=== PATIENT | female | born 1950 | race Two or more races ===

== ENCOUNTER 2017-01-02 18:16 | Inpatient (IN) | payer MEDICARE, MEDICAID ==
[~2017-01-02] VITALS: Ht 167.6 cm; Wt 80.7 kg
[~2017-01-02 18:16] MED LIST: ALBU18HF2 IH; ARMO250T4 PO; DULO60CA63 PO; LOPE2TAB25 PO; METH4TAB16 PO; OMEP40CA37 PO; OXYC10TA49 PO; TRAZ-144 PO; ZOLP5TAB7 PO
--- NOTE | 2017-01-02 18:22 | NUR ---
PT TO ED ROOM 05 VIA RA 102. BIB RA C/O N/V/D AND SOB SINCE 1200 TODAY. HYPOXIC. SIDE RAISL UP. HOB ELEVATED. CONNECTED TO MONITOR. O2 VIA N/R @ 15 L/M. SEEN ND EVALUATED BY ED PROVIDER.
[2017-01-02] MEDS ORDERED: IV NS 0.9% 1,000 ML IV ONE (18:26)
[2017-01-02] MEDS ORDERED: CEFTRIAXONE 1GM BAG (ER ONLY) 50 ML IV ONE ×2 (18:30→18:44)
[2017-01-02] MEDS ORDERED: IPRATROPIUM NEB FS 0.5 MG/2.5 ML AMPUL.NEB NEB ONE (18:30)
[2017-01-02] MEDS ORDERED: LEVOFLOXACIN 750 MG /D5W 150ML 150 ML IV ONE ×2 (18:30→18:44)
[2017-01-02] MEDS ORDERED: methylPREDNISolone SOD SUCC 125 MG/2ML VIAL IV ONE (18:30)
[2017-01-02] MEDS ORDERED: ALBUTEROL FS 2.5 MG/3 ML VIAL.NEB NEB ONE (18:30)
--- NOTE | 2017-01-02 18:30 | NUR ---
BLOOD CULTURES OBTAINED PRIOR TO STARTING EMPIRIC ATB THERAPY
[2017-01-02] MEDS ORDERED: methylPREDNISolone SOD SUCC 125 MG/2ML VIAL ONE (18:44)
[2017-01-02] MEDS ORDERED: IV NS 0.9% 1,000 ML ONE ×2 (18:44→23:49)
[2017-01-02] MEDS ORDERED: IV SET PRIMARY PUMP SET 1 EA INFUS.SET MC ONE ×3 (18:44→22:04)
[2017-01-02 18:49] LABS: BASOPHILS # (AUTO) 0.1 /CMM (0.0-0.2); BASOPHILS % (AUTO) 0.5 % (0.0-2.0); HEMATOCRIT 46 % (33-45); HEMOGLOBIN 14.5 g/dL (11.5-14.8); MEAN CORPUSCULAR HEMOGLOBIN 28 PG (26.0-33.0); MEAN CORPUSCULAR HGB CONC 32 g/dl (31.0-36.0); MEAN CORPUSCULAR VOLUME 89 fL (82-100); MONOCYTES # (AUTO) 1.3 /CMM (0.1-1.30); MONOCYTES % (AUTO) 6.2 % (2.0-12.0); NEUTROPHILS # (AUTO) 18.5 /CMM (1.8-8.9); NEUTROPHILS % (AUTO) 88.3 % (43.0-81.0); PLATELET COUNT (AUTO) 250 /CMM (150-450); RDW COEFFICIENT OF VARIATION 15.9 (11.5-15.0); RED BLOOD CELL COUNT(AUTO) 5.16 MIL/uL (4.0-5.2)
[2017-01-02 19:00] LABS: CALCIUM, SERUM 8.4 mg/dL (8.5-10.1); CARBON DIOXIDE 32 mmol/L (21-32); CHLORIDE 104 mmol/L (98-107); CREATININE 0.9 mg/dL (0.6-1.3); GFR 63 mL/min (>60); GLUCOSE 181 mg/dL (74-106); POTASSIUM 3.5 mmol/L (3.5-5.1); SODIUM SERUM 142 mmol/L (136-145); UREA NITROGEN, BLOOD 9 mg/dL (7-18)
[2017-01-02] MEDS ORDERED: IPRATROPIUM NEB FS 0.5 MG/2.5 ML AMPUL.NEB ONE (19:06)
[2017-01-02] MEDS ORDERED: ALBUTEROL FS 2.5 MG/3 ML VIAL.NEB ONE (19:06)
[2017-01-02 19:07] LABS: ALANINE AMINOTRANSFERASE 25 U/L (12-78); ALBUMIN 3.4 g/dL (3.4-5.0); ALKALINE PHOSPHATASE 91 U/L (46-116); ASPARTATE AMINOTRANSFERASE 17 U/L (15-37); BILIRUBIN,DIRECT 0.1 mg/dL (0.0-0.2); BILIRUBIN,TOTAL 0.3 mg/dL (0.2-1.0); TOTAL PROTEIN, SERUM 7.1 g/dL (6.4-8.2)
[2017-01-02 19:08] LABS: TROPONIN I < 0.017 ng/mL (0.00-0.056)
--- NOTE | 2017-01-02 19:08 | NUR ---
RT AT BEDSIDE FOR BT.
[2017-01-02 19:09] LABS: LACTIC ACID 1.5 mmol/L (0.4-2.0)
--- NOTE | 2017-01-02 19:46 | NUR ---
RECEIVED PATIENT IN BED ALERT ORIENTED X2-3, DENIES ANY PAIN OR DISCOMFORT. VSS.
[2017-01-02 20:00] VITALS: BP 132/54
--- NOTE | 2017-01-02 20:54 | NUR ---
PT ASSIGNED ROOM 109A [facility]
--- NOTE | 2017-01-02 21:00 | NUR ---
Inserted holcomb cath aseptically, patient jayda procedure well. Drained about 300cc of orange colored clear urine. Sample collected and sent to lab.
[2017-01-02 21:15] LABS: APPEARANCE,URINE CLEAR (CLEAR); BILIRUBIN,URINE NEGATIVE (NEGATIVE); BLOOD, URINE 1+ Ery/uL (NEGATIVE); COLOR,URINE YELLOW (YELLOW); KETONES,URINE NEGATIVE (NEGATIVE); LEUKOCYTE ESTERASE ,URINE NEGATIVE (NEGATIVE); NITRITE, URINE NEGATIVE (NEGATIVE); PROTEIN,URINE TRACE mg/dl (NEGATIVE); UGLUCOSE 1+ mg/dL (NEGATIVE); UROBILINOGEN,URINE 0.2 EU/dL (0.2)
--- NOTE | 2017-01-02 21:20 | NUR ---
Report given to Jeannie GARCIA for admission.
[2017-01-02 21:24] LABS: ADD URINE CULTURE YES; BACTERIA,URINE 3+ /HPF (None Seen); SQUAMOUS EPITHELIAL CELL,UR 0-2 /HPF (None Seen)
[2017-01-02] MEDS ORDERED: ONDANSETRON HCL/PF 4 MG/2 ML VIAL IVP PRN (22:00)
[2017-01-02] MEDS ORDERED: ACETAMINOPHEN 325 MG TABLET PO PRN (22:00)
[2017-01-02] MEDS ORDERED: IV NS 0.9% 1,000 ML BAG IV ONE (22:00)
[2017-01-02] MEDS ORDERED: Z GUARD REMEDY 2 OZ OINT TP PRN (22:00)
[2017-01-02] MEDS ORDERED: MAGNESIUM HYDROXIDE 30 ML UDC PO PRN (22:00)
[2017-01-02] MEDS ORDERED: MAG HYDROX/AL HYDROX/SIMETH 30 ML UDC PO PRN (22:00)
[2017-01-02] MEDS ORDERED: HYDROCODONE/APAP 5/325MG 1 EACH TABLET PO PRN (22:00)
[2017-01-02 22:05] VITALS: BP 125/71
--- NOTE | 2017-01-02 22:09 | NUR ---
Tranported patient to [facility] rm 109 via als protocol. Endorsed to RADHA Ni order for 2L NS bolus. No incident noted.
[2017-01-02] MEDS ORDERED: IV NS 0.9% 1,000 ML IV PRN ×2 (22:30)
[2017-01-02] MEDS ORDERED: IPRATROPIUM NEB FS 0.5 MG/2.5 ML AMPUL.NEB NEB PRN (22:30)
[2017-01-02] MEDS ORDERED: LEVOFLOXACIN 750 MG /D5W 150ML 750 MG in PREMIX 1 EA IV SCH (22:30)
[2017-01-02] MEDS ORDERED: ALBUTEROL FS 2.5 MG/3 ML VIAL.NEB NEB PRN (22:30)
[2017-01-02 22:40] VITALS: BP 125/71
[2017-01-02] MEDS ORDERED: DEXTROSE 50%-WATER 50 ML DISP.SYRIN IV PRN (23:30)
--- NOTE | 2017-01-02 23:58 | NUR ---
RN:TD: PT ADMITTED FROM ED FOR UTI. PT LETHARGIC BUT AROUSABLE TO TOUCH. PT A/OX2-3. PT PLACED ON 4 L NC WITH O2 SAT 94%. PT SR ON THE MONITOR. ALL BELONGINGS TAKEN HOME BY PATIENTS NEIGHBOR, WITH THE EXCEPTION OF THE PATIENTS CELL PHONE AND CHARGE WHICH REMAINS AT THE BEDSIDE. PT SKIN INTACT. IV SITES IN TACT. 2 L NS BOLUS ENDORSED FROM ED. SECOND LITER INFUSING AT THIS TIME. ASPIRATION AND FALL PRECAUTIONS IN PLACE. PT TAKEN TO CT PER ACLS PROTOCOL. CT HEAD AND ABD/PELVIS PER MD ORDER, ORDER CHANGED TO STAT TO ENSURE RADIOLOGY READS IMAGING TONIGHT. LEVAQUIN NON ADMIN BECAUSE PT RECEIVED THIS MEDICATION IN ER. PT RESTING COMFORTABLY IN BED. VSS. WILL CONTINUE TO MONITOR CLOSELY.
[2017-01-03] VITALS (7 sets, daily range): BP systolic 95–146; BP diastolic 49–84
[2017-01-03] MEDS: IV NS 0.9% 1,000 ML IV PRN ×2 (00:56→16:36)
--- NOTE | 2017-01-03 04:38 | NUR ---
RN:TD: PT REMAINS LETHARGIC BUT AROUSABLE TO TOUCH. PT ABLE TO STATE WHICH HOSPITAL SHE IS IN. PATIENT ADMITS TO TAKING PAIN MEDICATION YESTERDAY SHANK BONER. VITAL SIGNS REMAIN STABLE. ASPIRATION AND FALL PRECAUTIONS IN PLACE.
[2017-01-03] MEDS: INSULIN REGULAR, HUMAN 100 UNIT/ML 3 ML VIAL SQ PRN ×4 (06:45→21:32)
[2017-01-03] MEDS: BLOOD SUGAR DIAGNOSTIC 1 EACH STRIP IN SCH ×4 (06:45→21:29)
[2017-01-03 06:55] LABS: HEMATOCRIT 38 % (33-45); HEMOGLOBIN 12.1 g/dL (11.5-14.8); LYMPHOCYTES # (AUTO) 0.7 /CMM (0.8-4.8); LYMPHOCYTES % (AUTO) 4.5 % (20.0-44.0); MEAN CORPUSCULAR HEMOGLOBIN 29 PG (26.0-33.0); MEAN CORPUSCULAR HGB CONC 32 g/dl (31.0-36.0); MEAN CORPUSCULAR VOLUME 89 fL (82-100); MONOCYTES # (AUTO) 0.2 /CMM (0.1-1.30); MONOCYTES % (AUTO) 1.3 % (2.0-12.0); NEUTROPHILS # (AUTO) 14.2 /CMM (1.8-8.9); NEUTROPHILS % (AUTO) 94.2 % (43.0-81.0); PLATELET COUNT (AUTO) 199 /CMM (150-450); RDW COEFFICIENT OF VARIATION 15.7 (11.5-15.0); RED BLOOD CELL COUNT(AUTO) 4.23 MIL/uL (4.0-5.2); WHITE BLOOD COUNT (AUTO) 15.1 K/uL (4.3-11.0)
[2017-01-03 07:26] LABS: THYROID STIMULATING HORMONE 0.13 uIU/mL (0.358-3.74)
[2017-01-03 07:27] LABS: CALCIUM, SERUM 7.7 mg/dL (8.5-10.1); CREATININE 0.7 mg/dL (0.6-1.3); MAGNESIUM 1.4 mg/dL (1.8-2.4); PHOSPHORUS 1.8 mg/dL (2.5-4.9); POTASSIUM 3.9 mmol/L (3.5-5.1)
--- NOTE | 2017-01-03 08:05 | NUR ---
RN NOTES RECEIVED PT RESTING IN BED. ASLEEP AT THIS TIME, ON O2@3LPM VIA NC, NO RESP DISTRESS NOTED, SR ON TELE MONITOR HR 69 THIS TIME. ONGOING IVF NS@75ML/HR INFUSING ON L WRIST. NO PAIN/DISCOMFORT NOTED. KEPT COMFORTABLE. CALL LIGHT WITHIN REACH, WILL CONT TO MONITOR
[2017-01-03] MEDS ORDERED: LOPERAMIDE HCL (2 MG CAP) 2 MG CAPSULE PO PRN (08:30)
[2017-01-03] MEDS ORDERED: oxyCODONE IR immediate release 5 MG CAPSULE PO PRN (08:30)
[2017-01-03] MEDS: DULOXETINE HCL 30 MG CAPSULE.DR PO SCH (08:52)
[2017-01-03] MEDS: PANTOPRAZOLE 40 MG TABLET.DR PO SCH (08:52)
[2017-01-03] MEDS: methylPREDNISolone SOD SUCC 40 MG/ML VIAL IV SCH ×3 (08:52→16:36)
[2017-01-03] MEDS ORDERED: SECONDARY IV SET 1 EA INFUS.SET MC ONE (10:56)
[2017-01-03] MEDS: NICOTINE PATCH (14MG) 14 MG PATCH.TD24 TD SCH (10:58)
[2017-01-03] MEDS: Magnesium 1GM/D5W 100ML PREMIX 100 ML IV SCH ×2 (10:59→12:11)
[2017-01-03] MEDS ORDERED: K PHOS NEUTRAL 250 MG TABLET PO ONE (15:30)
[2017-01-03] MEDS: LEVOFLOXACIN 750 MG /D5W 150ML 750 MG in PREMIX 1 EA IV SCH (17:18)
--- NOTE | 2017-01-03 18:43 | NUR ---
RN NOTES PT INFORMED TO HAVE SISTER BRING HOME MED NUVIGIL, PT AGREED AND SHE SAID SHE WILL LET HER SISTER KNOW
--- NOTE | 2017-01-03 19:35 | NUR ---
RN OPENING NOTES: RECEIVED PT ON BED AWAKE ALX2-3 AND VERBALLY RESPONSIVE. ON O2 VIA NC AT 3LPM TOLERATED WELL NOT IN APPARENT DISTRESS. IV ACCESS ON LEFT HAND G20 PATENT AND INTACT, IVF INFUSING ORDERED. IV ON RAC G20 NOT PATENT, UNABLE TO FLUSH AT THIS TIME. TO DC. FC INTACT, DRAINING TO A CLOSED SYSTEM WITH CLEAR URINE. SAFETY MEASURES ENSURED. CALL LIGHT WITHIN REACH. CONTINUOUSLY MONITORED PT.
[2017-01-04] VITALS: BP 116/65
[2017-01-04 04:00] VITALS: BP 120/77
[2017-01-04] MEDS: BLOOD SUGAR DIAGNOSTIC 1 EACH STRIP IN SCH ×4 (06:43→21:37)
[2017-01-04] MEDS: PANTOPRAZOLE 40 MG TABLET.DR PO SCH ×2 (06:44→07:56)
[2017-01-04] MEDS: INSULIN REGULAR, HUMAN 100 UNIT/ML 3 ML VIAL SQ PRN ×4 (06:48→21:39)
[2017-01-04 06:59] LABS: CALCIUM, SERUM 8.1 mg/dL (8.5-10.1); CREATININE 0.6 mg/dL (0.6-1.3); MAGNESIUM 1.7 mg/dL (1.8-2.4); PHOSPHORUS 2.5 mg/dL (2.5-4.9); POTASSIUM 3.9 mmol/L (3.5-5.1)
--- NOTE | 2017-01-04 07:23 | NUR ---
RN CLOSING NOTES: PT REMAINED IN BED NOT IN APPARENT DISTRESS. REMAINED ON O2 THERAPY TOLERATED WELL. REMAINED SR ON MONITOR. REFUSED BED BATH, PER PATIENT SHE JUST WANTS TO SLEEP. AM LABD SRAWN. ACCUCHECKS PER PROTOCOL. SAFETY MEASURES ENSURED. ENDORSED TO AM SHIFT RN
--- NOTE | 2017-01-04 07:25 | NUR ---
TELE/RN AM NOTES RECEIVED PATIENT IN BED, ASLEEP, NO S/SX DISTRESS, RESPIRATION EVEN, UNLABORED, OXYGEN IN PLACE DELIVERING 3L/M VIA N/C, O2 SATURATION 100%. TELE MONITOR ATTACHED, HR 68, SINUS RHYTHM. IV LINE RAC INTACT, PATENT. WITH NS 75 CC/H. FOLLY CATHETER INTACT WITH 150 CC/URINE OUTPUT, CLEAR, YELLOW URINE, NO SEDIMENTS. BED IN LOW POSITION, 2SR UP FOR SAFETY. RESTING COMFORTABLY, WITH CALL LIGHT WITHIN EASY REACH. WILL CONTINUE TO MONITOR ACCORDINGLY Addendum: 01/04/17 at 1054 by DENA REYES RN CORRECTION: RAC PERIPHERAL LINE CLOGGED, LEFT WRIST PATENT, INTACT
[2017-01-04 08:00] VITALS: BP 145/78
[2017-01-04] MEDS: methylPREDNISolone SOD SUCC 40 MG/ML VIAL IV SCH ×3 (08:39→17:39)
[2017-01-04] MEDS: NICOTINE PATCH (14MG) 14 MG PATCH.TD24 TD SCH (08:39)
[2017-01-04] MEDS: DULOXETINE HCL 30 MG CAPSULE.DR PO SCH (08:40)
[2017-01-04] MEDS ORDERED: SECONDARY IV SET 1 EA INFUS.SET MC ONE (11:40)
[2017-01-04] MEDS: IV NS 0.9% 1,000 ML IV PRN (11:47)
[2017-01-04] MEDS: Magnesium 1GM/D5W 100ML PREMIX 100 ML IV SCH ×2 (11:47→12:56)
[2017-01-04 12:00] VITALS: BP 158/90
[2017-01-04 16:00] VITALS: BP 175/99
--- NOTE | 2017-01-04 16:09 | NUR ---
RN NOTES PER DIETITIAN RECOMMENDATION TO GIVE BOOST (GLUCOSE CONTROL) BID BETWEEN MEALS D/T POOR PO INTAKE, NOTED CARRIED OUT
--- NOTE | 2017-01-04 17:15 | NUR ---
RN NOTES DR. GARG VISITED, EXAMINED PATIENT, ORDERED TO D/C NORCO, START OXY IR 10 MG PO Q4H PRN FOR PAIN, AND GIVE IV NS 0.45 , 75 CC/H, D/C CURRENT IV 0.9 NS. NOTED CARRIED OUT
[2017-01-04] MEDS ORDERED: IV SET PRIMARY PUMP SET 1 EA INFUS.SET MC ONE (17:26)
[2017-01-04] MEDS: LEVOFLOXACIN 750 MG /D5W 150ML 750 MG in PREMIX 1 EA IV SCH (17:38)
[2017-01-04] MEDS: oxyCODONE IR immediate release 5 MG CAPSULE PO PRN (17:39)
--- NOTE | 2017-01-04 18:31 | NUR ---
RN NOTES PATIENT HAS BLOOD PRESSURE 175/99, PULSE 81, ASYMPTOMATIC, DENIES HEADACHE, DR. СЕРГЕЙ MEJIA, WILL WAIT FOR REPLY
--- NOTE | 2017-01-04 18:54 | NUR ---
TELE/RN CLOSING NOTES PATIENT IS IN THE BED, AWAKE, ALERT, NO CHANGES IN MENTAL STATUS NOTED DURING THE SHIFT, STABLE, ON OXYGEN 3L/M VIA N/C, TOLERATING WELL, O2 SAT 93%, NO SOB, HOB ELEVATED FOR COMFORT. TELE MONITOR ATTACHED HR 78 SINUS RHYTHM. IV LINE LFA INTACT, WITH NS 0.45% AT 75 CC/H ORDERED. NO S/SX FLUID OVERLOAD, RESPIRATION UNLABORED EVEN, F/C INTACT, WITH YELLOW URINE WITHOUT SEDIMENT, OUTPUT 1350 CC DURING THE SHIFT. KEPT CLEAN DRY COMFORTABLE , NEEDS MET IN TIMELY MANNER, WITH CALL LIGHT WITHIN EASY REACH ALL THE TIME. WILL ENDORSE TO THE NEXT SHIFT ACCORDINGLY.
[2017-01-04] MEDS: IV 1/2NS 1000 ML 1,000 ML IV PRN (19:12)
--- NOTE | 2017-01-04 19:25 | NUR ---
RN NOTES PT AWAKE, HOB ELEVATED, NO SOB, NOT IN DISTRESS, WITH O2 INHALATION AT 2LPM VIA NC AND TOLERATED WELL WITH GOOD SATURATION . PT ALERT AND ORIENTED X3, DENIES ANY PAIN AND DISCOMFORT AT THIS TIME. TELEMONITOR READS SINUS RHYTHM WITH HEART RATE AT 73. PER REPORT PT HAS ELEVATED BP, AWAITING FOR RETURN CALL FROM THE FINANCE PROFESSOR MD. IV ACCESS ON LEFT FORE ARM PATENT AND INTACT WITH ONGOING IVF INFUSING WELL. RICH CATH INTACT WITH CLEAR YELLOW URINE OUTPUT NOTED. DVT PUMP ON BOTH LOWER LEG AND HEELS OFFLOADED. KEPT COMFORTABLE AND ATTENDED. KEPT BED IN THE LOWEST POSITION, LOCKED, WITH SIDE RAILS X2 UP AND CALL LIGHT WITHIN REACH. WILL CONTINUE TO MONITOR PT.
[2017-01-04 20:00] VITALS: BP 166/93
[2017-01-04] MEDS ORDERED: hydrALAZINE HCL 10 MG TABLET ONE (21:26)
[2017-01-04] MEDS ORDERED: hydrALAZINE HCL 10 MG TABLET PO ONE (21:30)
--- NOTE | 2017-01-04 21:32 | NUR ---
RN NOTES BP RECHECKED 169/100, HEART RATE 78, TEMP 98.3. SPOKE TO SIERRA MICHAELS NP, MADE HIM AWARE PT HAS ELEVATED BP, NEW ORDER RECEIVED, GIVE APRESOLINE 10 MG TAB X1 NOW AND MAY GIVE DESYREL 50 MG TAB AFTER 1 HOUR IF PT WILL ASK FOR IT. PT MADE AWARE, NOTED AND CARRIED OUT.
--- NOTE | 2017-01-04 21:39 | NUR ---
RN NOTES BLOOD SUGAR CHECKED 166 MG/DL, 3 UNITS REGULAR INSULIN GIVEN SUBCU PER SLIDING SCALE. SNACKS OFFERED TO THE PT.
--- NOTE | 2017-01-04 22:35 | NUR ---
RN NOTES BP 157/87, HEART RATE 71. PT DENIES ANY PAIN AND DISCOMFORT. PT IS HAVING DIFFICULTY SLEEPING AND ASKING FOR TRAZADONE. WILL CONTINUE TO MONITOR PT.
[2017-01-04] MEDS: TRAZODONE 50 MG TABLET PO PRN (22:39)
--- NOTE | 2017-01-04 22:39 | NUR ---
RN NOTES DESYREL 50 MG TAB GIVEN PO AND TOLERATED WELL, FOR DIFFICULTY SLEEPING. WILL CONTINUE TO MONITOR PT.
[2017-01-05] VITALS: BP 146/78
[2017-01-05 04:00] VITALS: BP_SYST 146; BP_SYST 159; BP_DIAS 78; BP_DIAS 99
[2017-01-05] MEDS: IV 1/2NS 1000 ML 1,000 ML IV PRN (06:25)
[2017-01-05 06:26] LABS: HEMATOCRIT 39 % (33-45); HEMOGLOBIN 12.5 g/dL (11.5-14.8); LYMPHOCYTES # (AUTO) 1.2 /CMM (0.8-4.8); LYMPHOCYTES % (AUTO) 8.5 % (20.0-44.0); MEAN CORPUSCULAR HEMOGLOBIN 29 PG (26.0-33.0); MEAN CORPUSCULAR HGB CONC 32 g/dl (31.0-36.0); MEAN CORPUSCULAR VOLUME 89 fL (82-100); MONOCYTES # (AUTO) 0.7 /CMM (0.1-1.30); MONOCYTES % (AUTO) 5.3 % (2.0-12.0); NEUTROPHILS % (AUTO) 86.2 % (43.0-81.0); PLATELET COUNT (AUTO) 199 /CMM (150-450); RDW COEFFICIENT OF VARIATION 15.6 (11.5-15.0); RED BLOOD CELL COUNT(AUTO) 4.34 MIL/uL (4.0-5.2); WHITE BLOOD COUNT (AUTO) 13.9 K/uL (4.3-11.0)
[2017-01-05] MEDS: BLOOD SUGAR DIAGNOSTIC 1 EACH STRIP IN SCH ×4 (06:36→23:50)
[2017-01-05] MEDS: INSULIN REGULAR, HUMAN 100 UNIT/ML 3 ML VIAL SQ PRN ×4 (06:38→23:53)
[2017-01-05 06:49] LABS: CREATININE 0.7 mg/dL (0.6-1.3); MAGNESIUM 1.9 mg/dL (1.8-2.4); PHOSPHORUS 2.6 mg/dL (2.5-4.9); POTASSIUM 3.6 mmol/L (3.5-5.1)
--- NOTE | 2017-01-05 07:15 | NUR ---
RN NOTES PT ASLEEP, HOB ELEVATED, NO SOB, NOT IN DISTRESS, ON O2 INHALATION AT 2LPM VA NC WITH GOOD SATURATION. NOTED WITH SOB ON EXERTION, PT ABLE TO AMBULATE GOING TO THE BATHROOM. PT COUGH AT TIMES, NON PRODUCTIVE. TELE MONITOR READS SINUS RHYTHM WITH HEART RATE AT 63. PT AFEBRILE, LATEST BP 153/87, NO COMPLAIN OF PAIN, NO EPISODE OF NAUSEAS AND VOMITING. ALL DUE MEDS GIVEN. KEPT COMFORTABLE AND ATTENDED. WILL ENDORSE TO MORNING RN FOR CONTINUITY OF CARE.
--- NOTE | 2017-01-05 07:30 | NUR ---
RN NOTES RECEIVED PT RESTING IN BED AWAKE ALERT ORIENTED, NOT IN DISTRESS, WITH O2@ 2LPM VIA NC, TOLERATING WELL NO SOB. WITH C/O PAIN ON HER BACK PS 04/08 WILL GIVE PAIN MEDS ORDERED. TELEMONITOR SHOWS SINUS RHYTHM WITH HEART RATE AT 75. IV ACCESS ON LEFT FOREARM PATENT AND INTACT WITH ONGOING IVF 1/2NS@75ML/HR INFUSING WELL. RICH CATH PATENT, INTACT DRAINING YELLOW COLOR URINE. KEPT COMFORTABLE AND ATTENDED. KEPT BED IN THE LOWEST POSITION, LOCKED, WITH SIDE RAILS X2 UP AND CALL LIGHT WITHIN REACH. WILL CONTINUE TO MONITOR PT.
[2017-01-05 08:00] VITALS: BP 153/80
[2017-01-05] MEDS: PANTOPRAZOLE 40 MG TABLET.DR PO SCH (09:17)
[2017-01-05] MEDS: methylPREDNISolone SOD SUCC 40 MG/ML VIAL IV SCH ×3 (09:17→16:39)
[2017-01-05] MEDS: BOOST GLUCOSE CONTROL VANILLA 237 ML BOX PO SCH ×2 (09:17→13:56)
[2017-01-05] MEDS: NICOTINE PATCH (14MG) 14 MG PATCH.TD24 TD SCH (09:17)
[2017-01-05] MEDS: DULOXETINE HCL 30 MG CAPSULE.DR PO SCH (09:17)
[2017-01-05 12:00] VITALS: BP_SYST 149; BP_SYST 163; BP_DIAS 75; BP_DIAS 88
--- NOTE | 2017-01-05 14:45 | NUR ---
RN NOTES SPOKE WITH ANDREA MAINTENANCE AND REPAIR WORKER, PT UPDATE REPORTED, CURRENT LABS REPORTED. PER ANDREA OK TO GINA DRIVER, MONITOR FOR RETENTION. KEEP IVF HYDRATION FOR NOW.
[2017-01-05] MEDS: IPRATROPIUM NEB FS 0.5 MG/2.5 ML AMPUL.NEB NEB SCH ×2 (15:31→19:58)
[2017-01-05] MEDS: ALBUTEROL FS 2.5 MG/3 ML VIAL.NEB NEB SCH ×2 (15:31→19:58)
[2017-01-05] MEDS: oxyCODONE IR immediate release 5 MG CAPSULE PO PRN ×2 (15:46→21:10)
[2017-01-05 16:00] VITALS: BP 150/79
[2017-01-05] MEDS: LEVOFLOXACIN 750 MG /D5W 150ML 750 MG in PREMIX 1 EA IV SCH (17:41)
[2017-01-05 20:00] VITALS: BP_SYST 160; BP_SYST 182; BP_DIAS 70; BP_DIAS 91
[2017-01-05] MEDS: TRAZODONE 50 MG TABLET PO PRN (21:18)
[2017-01-06] VITALS: BP_SYST 157; BP_SYST 159; BP_DIAS 87; BP_DIAS 89
--- NOTE | 2017-01-06 01:07 | NUR ---
RN NOTE, INITIAL ASSESSMENT. RECEIVED THE PT REST ON THE BED. OXYGEN 2L VIA NASAL CANNULA. SAT 98%. NO ACUTE DISTRESS NOTED. UNDERWEAR CUTTER SHOWING NSR. IV RT HAND 20G. IVF 1/2NS 75 ML/H. AFEBRILE. HOB ELEVATED. TURN AND REPOSITION PT INDEPENDENT.WILL CONTINUE TO MONITOR VITALS.
[2017-01-06] MEDS: IPRATROPIUM NEB FS 0.5 MG/2.5 ML AMPUL.NEB NEB SCH ×4 (01:19→20:13)
[2017-01-06] MEDS: ALBUTEROL FS 2.5 MG/3 ML VIAL.NEB NEB SCH ×4 (01:19→20:13)
--- NOTE | 2017-01-06 03:42 | NUR ---
RN NOTE. AM CARE. ORAL CARE, BED BATH GIVEN. LINEN CHANGED. REMAINING SAME OXYGEN TOLERATED WELL. SAT 98%, NO ACUTE DISTRESS NOTED. WOOD HEEL CEMENTER SHOWING NSR. IV RT HAND 20G. IVF 1/2NS 75 ML/H. HOB ELEVATED, TURN AND REPOSITION PT IS INDEPENDENT. WILL CONTINUE TO MONITOR VITALS.
[2017-01-06] MEDS: IV 1/2NS 1000 ML 1,000 ML IV PRN (03:49)
[2017-01-06 04:00] VITALS: BP_SYST 146; BP_SYST 147; BP_DIAS 70; BP_DIAS 77
[2017-01-06] MEDS: BLOOD SUGAR DIAGNOSTIC 1 EACH STRIP IN SCH ×4 (06:39→21:18)
[2017-01-06 06:45] LABS: BASOPHILS % (AUTO) 0.2 % (0.0-2.0); EOSINOPHILS % (AUTO) 0.1 % (0.0-6.0); HEMATOCRIT 40 % (33-45); HEMOGLOBIN 13.2 g/dL (11.5-14.8); LYMPHOCYTES # (AUTO) 1.4 /CMM (0.8-4.8); LYMPHOCYTES % (AUTO) 12.4 % (20.0-44.0); MEAN CORPUSCULAR HEMOGLOBIN 29 PG (26.0-33.0); MEAN CORPUSCULAR HGB CONC 33 g/dl (31.0-36.0); MEAN CORPUSCULAR VOLUME 88 fL (82-100); MONOCYTES # (AUTO) 0.8 /CMM (0.1-1.30); MONOCYTES % (AUTO) 7.4 % (2.0-12.0); NEUTROPHILS # (AUTO) 8.7 /CMM (1.8-8.9); NEUTROPHILS % (AUTO) 79.9 % (43.0-81.0); PLATELET COUNT (AUTO) 221 /CMM (150-450); RDW COEFFICIENT OF VARIATION 15.4 (11.5-15.0); RED BLOOD CELL COUNT(AUTO) 4.56 MIL/uL (4.0-5.2); WHITE BLOOD COUNT (AUTO) 10.9 K/uL (4.3-11.0)
--- NOTE | 2017-01-06 07:00 | NUR ---
RN NOTES RECEIVED PT RESTING IN BED AWAKE ALERT ORIENTED, NOT IN DISTRESS, WITH O2@ 2LPM VIA NC, TOLERATING WELL NO SOB. NO C/O PAIN.TELEMONITOR SHOWS SINUS RHYTHM WITH HEART RATE AT 75. IV ACCESS ON LEFT FOREARM PATENT AND INTACT WITH ONGOING IVF 1/2NS@75ML/HR INFUSING WELL. RICH CATH PATENT, INTACT DRAINING YELLOW COLOR URINE. KEPT COMFORTABLE AND ATTENDED. KEPT BED IN THE LOWEST POSITION, LOCKED, WITH SIDE RAILS X2 UP AND CALL LIGHT WITHIN REACH. WILL CONTINUE TO MONITOR PT
[2017-01-06 07:06] LABS: CALCIUM, SERUM 8.2 mg/dL (8.5-10.1); CREATININE 0.8 mg/dL (0.6-1.3); MAGNESIUM 1.8 mg/dL (1.8-2.4); PHOSPHORUS 3.7 mg/dL (2.5-4.9); POTASSIUM 3.4 mmol/L (3.5-5.1)
[2017-01-06 08:00] VITALS: BP 163/92
[2017-01-06] MEDS: NICOTINE PATCH (14MG) 14 MG PATCH.TD24 TD SCH (08:24)
[2017-01-06] MEDS: methylPREDNISolone SOD SUCC 40 MG/ML VIAL IV SCH ×3 (08:24→16:54)
[2017-01-06] MEDS: DULOXETINE HCL 30 MG CAPSULE.DR PO SCH (08:24)
[2017-01-06] MEDS: PANTOPRAZOLE 40 MG TABLET.DR PO SCH (08:25)
[2017-01-06] MEDS: BOOST GLUCOSE CONTROL VANILLA 237 ML BOX PO SCH ×2 (10:04→14:10)
[2017-01-06] MEDS ORDERED: POTASSIUM CHLORIDE 20 MEQ TAB.PRT.SR PO SCH (11:00)
[2017-01-06 12:00] VITALS: BP 163/88
[2017-01-06] MEDS: FLUTICASONE/SALMETEROL DISKUS IH SCH ×2 (14:10→21:00)
[2017-01-06] MEDS: ACETYLCYSTEINE 20% SOLN 800 MG/4 ML VIAL NEB SCH ×2 (15:40→23:52)
[2017-01-06 16:00] VITALS: BP 165/96
[2017-01-06] MEDS: LEVOFLOXACIN 750 MG /D5W 150ML 750 MG in PREMIX 1 EA IV SCH (17:59)
[2017-01-06 20:00] VITALS: BP_SYST 158; BP_SYST 176; BP_DIAS 101; BP_DIAS 112
[2017-01-06] MEDS: TRAZODONE 50 MG TABLET PO PRN (20:21)
[2017-01-06] MEDS: INSULIN REGULAR, HUMAN 100 UNIT/ML 3 ML VIAL SQ PRN (21:21)
[2017-01-07] VITALS: BP 166/90
[2017-01-07] MEDS: IPRATROPIUM NEB FS 0.5 MG/2.5 ML AMPUL.NEB NEB SCH ×2 (01:53→07:20)
[2017-01-07] MEDS: ALBUTEROL FS 2.5 MG/3 ML VIAL.NEB NEB SCH ×2 (01:53→07:20)
[2017-01-07 04:00] VITALS: BP 158/87
[2017-01-07 06:16] LABS: BASOPHILS % (AUTO) 0.4 % (0.0-2.0); HEMATOCRIT 47 % (33-45); HEMOGLOBIN 15.2 g/dL (11.5-14.8); LYMPHOCYTES # (AUTO) 1.7 /CMM (0.8-4.8); LYMPHOCYTES % (AUTO) 13.4 % (20.0-44.0); MEAN CORPUSCULAR HEMOGLOBIN 28 PG (26.0-33.0); MEAN CORPUSCULAR HGB CONC 32 g/dl (31.0-36.0); MEAN CORPUSCULAR VOLUME 87 fL (82-100); MONOCYTES # (AUTO) 0.9 /CMM (0.1-1.30); MONOCYTES % (AUTO) 7.3 % (2.0-12.0); NEUTROPHILS # (AUTO) 9.9 /CMM (1.8-8.9); NEUTROPHILS % (AUTO) 78.9 % (43.0-81.0); PLATELET COUNT (AUTO) 243 /CMM (150-450); RDW COEFFICIENT OF VARIATION 15.2 (11.5-15.0); RED BLOOD CELL COUNT(AUTO) 5.41 MIL/uL (4.0-5.2); WHITE BLOOD COUNT (AUTO) 12.5 K/uL (4.3-11.0)
[2017-01-07 06:27] LABS: CALCIUM, SERUM 8.8 mg/dL (8.5-10.1); CREATININE 0.7 mg/dL (0.6-1.3); MAGNESIUM 1.9 mg/dL (1.8-2.4); PHOSPHORUS 3.1 mg/dL (2.5-4.9); POTASSIUM 3.2 mmol/L (3.5-5.1)
[2017-01-07] MEDS: BLOOD SUGAR DIAGNOSTIC 1 EACH STRIP IN SCH ×2 (06:59→12:42)
--- NOTE | 2017-01-07 07:07 | NUR ---
RN NOTE PT REMAINS IN NO ACUTE DISTRESS IN BED. PT DID NOT HAVE ANY SIGNIFICANT CHANGE IN CONDITION DURING SHIFT. ALL NEEDS MET ALL ORDERS CARRIED OUT. IV PATENT WITH NS @ 75ML/HR. ALL SAFETY MEASURE ENSURED AND CARRIED OUT. WILL ENDORSE CARE TO AM RN FOR CONTINUITY OF CARE.
[2017-01-07] MEDS: ACETYLCYSTEINE 20% SOLN 800 MG/4 ML VIAL NEB SCH (07:20)
[2017-01-07 08:00] VITALS: BP 143/81
[2017-01-07] MEDS: FLUTICASONE/SALMETEROL DISKUS IH SCH (08:53)
[2017-01-07] MEDS: DULOXETINE HCL 30 MG CAPSULE.DR PO SCH (08:53)
[2017-01-07] MEDS: methylPREDNISolone SOD SUCC 40 MG/ML VIAL IV SCH ×2 (08:53→12:21)
[2017-01-07] MEDS: PANTOPRAZOLE 40 MG TABLET.DR PO SCH (08:53)
[2017-01-07] MEDS: NICOTINE PATCH (14MG) 14 MG PATCH.TD24 TD SCH (08:53)
[2017-01-07] MEDS: BOOST GLUCOSE CONTROL VANILLA 237 ML BOX PO SCH (08:54)
[2017-01-07 10:04] LABS: ABG BASE EXCESS 5.5 mmol/L; ABG OXYGEN SATURATION 93.4 % (92.0-98.5); ABG PCO2 35.2 mmHg (35.0-45.0); ABG PH 7.521 (7.350-7.450); ABG PO2 65.5 mmHg (75.0-100.0); ABG TOTAL HEMOGLOBIN 15.3 G/dL (12.0-16.0); AaDO2 92.6 mmHg; COHb 1.2 % (0.5-1.5); MetHb 0.7 % (0.0-1.5); O2Hb 91.6 % (94.0-97.0); SITE, ABG Left Radial; VENT MODE, BG 2L
[2017-01-07 12:00] VITALS: BP 175/98
[2017-01-07] MEDS ORDERED: POTASSIUM CHLORIDE 20 MEQ TAB.PRT.SR PO SCH (12:00)
--- NOTE | 2017-01-07 13:00 | NUR ---
pt d/c home AMA .NO S/S OF DISTRESS.FAMILY PRESENT AT BEDSIDE.ALL RISKS DISCUSSED.PATIENT LEFT WITH ALL BELONGINGS
== END 2017-01-07 16:14 | disposition left against medical advice (07) | DRG 871 ==
LOC: ER 18:18 → TELE-TD 21:39 → TELE1 01-03 14:15
PROVIDERS: ADMIT Contractor; ATTEND Contractor
DX: A41.9 Sepsis, unspecified organism (principal); G93.40 Encephalopathy, unspecified; J44.1 Chronic obstructive pulmonary disease with (acute) exacerbation; N39.0 Urinary tract infection, site not specified; E46 Unspecified protein-calorie malnutrition; M79.7 Fibromyalgia; K21.9 Gastro-esophageal reflux disease without esophagitis; G35 Multiple sclerosis; E11.65 Type 2 diabetes mellitus with hyperglycemia; F17.210 Nicotine dependence, cigarettes, uncomplicated; Z85.51 Personal history of malignant neoplasm of bladder; Z85.3 Personal history of malignant neoplasm of breast; G89.29 Other chronic pain; M54.5 Low back pain; F32.9 Major depressive disorder, single episode, unspecified; E66.9 Obesity, unspecified; E83.42 Hypomagnesemia; N28.1 Cyst of kidney, acquired; N83.202 Unspecified ovarian cyst, left side
CPT/HCPCS: 36415; 36600; 70450-TC; 71010-TC; 80048-TC; 80061-TC; 80076-TC; 81000-TC; 82962-TC; 83605-TC; 83690-TC; 83735-TC; 84100-TC; 84443-TC; 84484-TC; 85025-TC; 87040-TC; 87081-TC; 87086-TC; 94799-TC; 97001-TC; 97116-TC; 97530-TC; A4216; A4606; A6253; A6403; J0696; J1815; J1956; J2920; J2930; J3475; J3490; J7030; Z7610

== ENCOUNTER 2017-01-22 17:30 | Emergency (ER) | payer MEDICARE, MEDICAID ==
[~2017-01-22] VITALS: Ht 152.4 cm; Wt 72.6 kg
--- NOTE | 2017-01-22 17:30 | NUR ---
BIB DTR DUE TO LOWER ABDOMINAL PAIN, 04/08, NON RADIATINGX 2 WEEKS. PATIENT IS AAO3, APPEARS IN NO APPARENT DISTRESS, RESPIRATION EVEN AND UNLABORED. PATIENT DENIES CHEST PAIN. ABDOMEN NON TENDERED, HOWEVER PT NOTED WITH LOWER ABDOMINAL EXTENDING TO LEFT SIDE PURPLISH DISCOLORATION. DENIES FALL NOR INJURY. BLE WERE ALSO NOTED WITH +2 PITTING EDEMA,. PATIENT IS AFEBRILE. GOWNED PT AND PLACED ON TELE MONITOR.
--- NOTE | 2017-01-22 17:40 | NUR ---
MD OAKES AT BS
--- NOTE | 2017-01-22 17:42 | NUR ---
IV ACCESSED TO LEFT HAND 20. BLOOD SAMPLE SENT TO LAB
--- NOTE | 2017-01-22 17:43 | NUR ---
ELECTRICAL ELECTRONICS ENGINEER AT
[2017-01-22 18:02] LABS: BASOPHILS # (AUTO) 0.2 /CMM (0.0-0.2); BASOPHILS % (AUTO) 2.5 % (0.0-2.0); EOSINOPHILS # (AUTO) 0.3 /CMM (0.0-0.7); EOSINOPHILS % (AUTO) 3.3 % (0.0-6.0); HEMATOCRIT 32 % (33-45); HEMOGLOBIN 10.7 g/dL (11.5-14.8); LYMPHOCYTES # (AUTO) 2.2 /CMM (0.8-4.8); LYMPHOCYTES % (AUTO) 21.9 % (20.0-44.0); MEAN CORPUSCULAR HEMOGLOBIN 29 PG (26.0-33.0); MEAN CORPUSCULAR HGB CONC 34 g/dl (31.0-36.0); MEAN CORPUSCULAR VOLUME 87 fL (82-100); MONOCYTES # (AUTO) 0.5 /CMM (0.1-1.30); MONOCYTES % (AUTO) 5.3 % (2.0-12.0); NEUTROPHILS # (AUTO) 6.8 /CMM (1.8-8.9); PLATELET COUNT (AUTO) 220 /CMM (150-450); RDW COEFFICIENT OF VARIATION 15.3 (11.5-15.0); RED BLOOD CELL COUNT(AUTO) 3.65 MIL/uL (4.0-5.2)
--- NOTE | 2017-01-22 18:13 | NUR ---
URINE SAMPLE SENT TO LAB
[2017-01-22 18:15] LABS: CALCIUM, SERUM 8.4 mg/dL (8.5-10.1); CARBON DIOXIDE 32 mmol/L (21-32); CHLORIDE 102 mmol/L (98-107); CREATININE 0.7 mg/dL (0.6-1.3); GFR 84 mL/min (>60); GLUCOSE 151 mg/dL (74-106); POTASSIUM 3.1 mmol/L (3.5-5.1); SODIUM SERUM 139 mmol/L (136-145); UREA NITROGEN, BLOOD 6 mg/dL (7-18)
[2017-01-22 18:23] LABS: TROPONIN I < 0.017 ng/mL (0.00-0.056)
[2017-01-22] MEDS ORDERED: IV NS 0.9% 250 ML IV ONE (18:26)
[2017-01-22] MEDS ORDERED: IOHEXOL-300 100 ML VIAL IV ONE (18:26)
[2017-01-22] MEDS ORDERED: LOSA25TA13 PO (18:29)
[2017-01-22] MEDS ORDERED: [UNRECOGNIZED DRUG - CODE] PO (18:29)
[2017-01-22] MEDS ORDERED: DIAZ5TAB PO (18:29)
[2017-01-22] MEDS ORDERED: BUDE10.2 IH (18:29)
[2017-01-22 18:30] LABS: ALANINE AMINOTRANSFERASE 17 U/L (12-78); ALBUMIN 3.1 g/dL (3.4-5.0); ALKALINE PHOSPHATASE 95 U/L (46-116); ASPARTATE AMINOTRANSFERASE 13 U/L (15-37); BILIRUBIN,DIRECT 0.2 mg/dL (0.0-0.2); LIPASE 50 U/L (73-393); TOTAL PROTEIN, SERUM 6.4 g/dL (6.4-8.2)
[2017-01-22] MEDS ORDERED: ATOR40TA PO (18:36)
[2017-01-22] MEDS ORDERED: HYDR12TA PO (18:36)
[2017-01-22] MEDS ORDERED: METF500T4 PO (18:36)
[2017-01-22 18:50] LABS: APPEARANCE,URINE Clear (CLEAR); BLOOD, URINE Trace-intact Ery/uL (NEGATIVE); COLOR,URINE Yellow (YELLOW); KETONES,URINE Negative (NEGATIVE); LEUKOCYTE ESTERASE ,URINE Negative (NEGATIVE); NITRITE, URINE Positive (NEGATIVE); PH,URINE 5.5 (5.0-8.0); PROTEIN,URINE 30 mg/dl (NEGATIVE)
[2017-01-22 18:53] LABS: INR 0.97 (0.87-1.13); PROTHROMBIN TIME 10.1 SECS (9.5-12.7)
[2017-01-22 18:54] LABS: BILIRUBIN,URINE SMALL (NEGATIVE); UGLUCOSE 100 MG/DL mg/dL (NEGATIVE)
[2017-01-22 19:03] LABS: ADD URINE CULTURE YES; BACTERIA,URINE Moderate /HPF (None Seen); SQUAMOUS EPITHELIAL CELL,UR Few /HPF (None Seen); URINE AMORPHOUS URATE Many /HPF (None Seen); WBC,URINE 0-2 /HPF (0-3)
--- NOTE | 2017-01-22 19:41 | NUR ---
Dr Bar with Dr Viera regarding plan of care.
--- NOTE | 2017-01-22 19:52 | NUR ---
IV removed. Catheter intact and site benign. Pressure and 4x4 applied to site. No bleeding noted. Patient discharged to home in stable condition. Written and verbal after care instructions given. Patient verbalizes understanding of instruction. Patient is ambulatory with steady gait, accompanied by daughter.
[2017-01-22 19:54] VITALS: BP 133/91
== END 2017-01-22 19:54 | disposition home or self-care (01) ==
LOC: ER 17:32
DX: S30.1XXA Contusion of abdominal wall, initial encounter (principal); S36.62XA Contusion of rectum, initial encounter; R05 Cough; G35 Multiple sclerosis; E11.9 Type 2 diabetes mellitus without complications; K21.9 Gastro-esophageal reflux disease without esophagitis; G89.29 Other chronic pain; N83.201 Unspecified ovarian cyst, right side; F17.200 Nicotine dependence, unspecified, uncomplicated; Z85.3 Personal history of malignant neoplasm of breast; Z71.6 Tobacco abuse counseling; Z85.51 Personal history of malignant neoplasm of bladder; Z88.0 Allergy status to penicillin; Z88.6 Allergy status to analgesic agent
CPT/HCPCS: 36415; 71010; 74160; 80048; 80076; 81001; 83690; 84484; 85025; 85730; 87086; 93005; 99285; 99406; J7050; Q9967; 81000-TC; Z7610

== ENCOUNTER 2020-07-02 12:48 | Inpatient (IN) | payer MEDICARE, OTHER ==
[~2020-07-02] VITALS: Ht 154.9 cm; Wt 76.2 kg
[~2020-07-02 12:48] MED LIST changes: +ARMO200T3 PO; -ARMO250T4 PO; +ATOR40TA PO; +BUDE10.2 IH; +DIAZ5TAB PO; -DULO60CA63 PO; +DULO60CA64 PO; +HYDR12TA PO; -LOPE2TAB25 PO; +LOSA25TA27 PO; +METF-440 PO; -METH4TAB16 PO; -OMEP40CA37 PO; -TRAZ-144 PO; +TRAZ-182 PO; -ZOLP5TAB7 PO
--- NOTE | 2020-07-02 12:55 | NUR ---
RACHEL FROM HOME WITH C/O NAUSEA AND VOMITING SINCE LAST NIGHT. PT NOTED +VOMIT UPON ARIVAL. MINIMAL AMOUNT. YELLOW CONTENT. NO BLOOD NOTED. NO DIARRHEA. PT VERBALLY RESPONSIVE ABLE TO FOLLOW DIRECTIONS. NO PAIN OR DISCOMFORT. AWAITING FOR MD LAROSE
[2020-07-02] MEDS ORDERED: ONDANSETRON HCL/PF 4 MG/2 ML VIAL ONE (12:56)
[2020-07-02] MEDS ORDERED: ONDANSETRON HCL/PF 4 MG/2 ML VIAL IVP ONE (13:00)
--- NOTE | 2020-07-02 13:29 | NUR ---
PT OUT FOR CT
[2020-07-02] MEDS ORDERED: MORPHINE SULFATE INJ 2 MG/ML DISP.SYRIN IV ONE (13:30)
[2020-07-02 13:31] LABS: CALCIUM, SERUM 9.2 mg/dL (8.5-10.1); CREATININE 0.6 mg/dL (0.6-1.3); POTASSIUM 4.2 mmol/L (3.5-5.1)
[2020-07-02 13:37] LABS: ALBUMIN 3.3 g/dL (3.4-5.0); BILIRUBIN,DIRECT 0.1 mg/dL (0.0-0.2); BILIRUBIN,TOTAL 0.3 mg/dL (0.2-1.0); TOTAL PROTEIN, SERUM 7.4 g/dL (6.4-8.2)
--- NOTE | 2020-07-02 13:56 | NUR ---
pt back from CT
[2020-07-02 14:24] LABS: BASOPHILS # (AUTO) 0.1 /CMM (0.0-0.2); BASOPHILS % (AUTO) 0.6 % (0.0-2.0); HEMATOCRIT 47 % (33-45); HEMOGLOBIN 14.7 g/dL (11.5-14.8); LYMPHOCYTES # (AUTO) 0.7 /CMM (0.8-4.8); MEAN CORPUSCULAR HGB CONC 31 g/dl (31.0-36.0); MEAN CORPUSCULAR VOLUME 93 fL (82-100); MONOCYTES # (AUTO) 0.4 /CMM (0.1-1.30); MONOCYTES % (AUTO) 2.4 % (2.0-12.0); NEUTROPHILS # (AUTO) 15.9 /CMM (1.8-8.9); PLATELET COUNT (AUTO) 203 /CMM (150-450); RED BLOOD CELL COUNT(AUTO) 5.06 MIL/uL (4.0-5.2)
--- NOTE | 2020-07-02 14:29 | NUR ---
urine collected and sent to lab
[2020-07-02 14:52] LABS: APPEARANCE,URINE Clear (CLEAR); BILIRUBIN,URINE Negative (NEGATIVE); BLOOD, URINE Trace-intact Ery/uL (NEGATIVE); COLOR,URINE Yellow (YELLOW); LEUKOCYTE ESTERASE ,URINE Negative (NEGATIVE); NITRITE, URINE Negative (NEGATIVE); PROTEIN,URINE 30 mg/dl (NEGATIVE); UGLUCOSE >=1000 mg/dL (NEGATIVE)
[2020-07-02 14:53] LABS: BACTERIA,URINE Few /HPF (None Seen); SQUAMOUS EPITHELIAL CELL,UR Few /HPF (None Seen); WBC,URINE 0-2 /HPF (0-3)
[2020-07-02] MEDS ORDERED: LEVOFLOXACIN 750 MG /D5W 150ML 150 ML IV ONE ×2 (15:00→15:02)
[2020-07-02] MEDS ORDERED: METRONIDAZOLE 500MG/ NS 100ML 100 ML IV ONE ×2 (15:00→15:02)
[2020-07-02] MEDS ORDERED: HYDR-4354 PO (16:04)
[2020-07-02] MEDS ORDERED: CYCL5TAB PO (16:04)
[2020-07-02] MEDS ORDERED: CLON0.1T PO (16:04)
[2020-07-02] MEDS ORDERED: SENN1TAB33 PO (16:04)
[2020-07-02] MEDS ORDERED: OMEP40CA13 PO (16:04)
[2020-07-02] MEDS ORDERED: METH5TAB2 PO (16:04)
[2020-07-02] MEDS ORDERED: IPRA3AMP23 IH (16:04)
[2020-07-02] MEDS ORDERED: TIOT18CA3 IH (16:04)
[2020-07-02] MEDS ORDERED: TEMA30CA PO (16:04)
[2020-07-02] MEDS ORDERED: DIPH25CA51 PO ×2 (16:04)
[2020-07-02] MEDS ORDERED: MAGNESIUM HYDROXIDE 30 ML UDC PO PRN (16:30)
[2020-07-02] MEDS ORDERED: HYDROCODONE/APAP 5/325MG TABLET PO PRN (16:30)
[2020-07-02] MEDS ORDERED: ZOLPIDEM TARTRATE 5 MG TABLET PO PRN (16:30)
[2020-07-02] MEDS ORDERED: Z GUARD REMEDY 2 OZ OINT TP PRN (16:30)
[2020-07-02] MEDS ORDERED: Medication Not On Formulary EA (Ipratropium/Albuterol Sulfate (Duoneb 2.5-0.5 Mg/3 Ml So IH PRN (16:30)
[2020-07-02] MEDS ORDERED: ACETAMINOPHEN 325 MG TABLET PO PRN (16:30)
[2020-07-02] MEDS ORDERED: SENNOSIDES/DOCUSATE SODIUM 1 UDTAB TABLET PO PRN (16:30)
[2020-07-02] MEDS ORDERED: diphenhydrAMINE HCL 25 MG CAPSULE PO PRN (16:30)
[2020-07-02] MEDS ORDERED: CLONIDINE HCL 0.1 MG TABLET PO PRN (16:30)
[2020-07-02] MEDS ORDERED: MAG HYDROX/AL HYDROX/SIMETH 30 ML UDC PO PRN (16:30)
[2020-07-02] MEDS ORDERED: ONDANSETRON HCL/PF 4 MG/2 ML VIAL IVP PRN (16:30)
[2020-07-02] MEDS ORDERED: HYDROCODONE/APAP 10/325MG TABLET PO PRN (16:30)
[2020-07-02] MEDS ORDERED: TIOTROPIUM BROMIDE 6 CAP/BOX CAP.W.DEV IH PRN (16:30)
--- NOTE | 2020-07-02 16:45 | NUR ---
covid swab test collected and sent to lab
--- NOTE | 2020-07-02 16:49 | NUR ---
pt in bed asleep. easily arousable. able to follow directions. NAD. no pain or discomfort at this time. v/s stable. will continue POC
--- NOTE | 2020-07-02 17:58 | NUR ---
lab called.covid 19 (-)
--- NOTE | 2020-07-02 18:21 | NUR ---
report given to Guerrero GARCIA for lavonne
--- NOTE | 2020-07-02 18:43 | NUR ---
wheeled patient via gurney accompanied by emt in no distress. RN at bedside to assume care.
[2020-07-02 18:54] VITALS: BP 117/80
[2020-07-02] MEDS ORDERED: ALBUTEROL FS 2.5 MG/0.5 ML VIAL.NEB NEB PRN (19:00)
[2020-07-02] MEDS ORDERED: IPRATROPIUM NEB FS 0.5 MG/2.5 ML AMPUL.NEB NEB PRN (19:00)
[2020-07-02] MEDS: DULOXETINE HCL 30 MG CAPSULE.DR PO SCH (19:03)
--- NOTE | 2020-07-02 19:12 | NUR ---
MS RN ADMITTING NOTES PT ADMITTED TO UNIT AT 1850 VIA GURNEY ACCOMPANIED BY Leanne WOO. PT IS A/O X4. ABLE TO MAKE NEEDS KNOWN. ORIENTED TO ROOM AND STAFF. V/S TAKEN, STABLE AND RECORDED. PT WITH DX OF CHOLECYSTITIS. ON SUPPLEMENTAL 02 VIA N/C @ 2LPM, BREATHING EVEN AND UNLABORED. PT NOTED WITH IV ACCESS ON LEFT HAND G#22 INTACT AND PATENT. SAFETY MEASURES INITIATED: BED PLACED IN LOWEST LOCKED POSITION. SIDE-RAILS UP X2 AND CALL LIGHT PLACED W/IN EASY REACH OF PT. ENDORSED TO HOUSING MANAGEMENT REPRESENTATIVE NURSE YAZAN TO COMPLETE THE ADMITTING PROCESS.
[2020-07-02 19:30] VITALS: BP 151/88
--- NOTE | 2020-07-02 19:30 | NUR ---
MS RN OPENING/ ADMISSION NOTE RECEIVED REPORT FROM NATALIA GARCIA. PATIENT IS RESTING BED. A/OX4 TO NAME, PLACE AND , BUT PATIENT IS FORGETFUL/PERIODS OF CONFUSION, DOES NOT REMEMBER LAST VOID OR BM. ON OXYGEN 3.5L/MIN VIA NASAL CANNULA O2 SAT 99%. RESPIRATIONS ARE EVEN AND UNLABORED, SHALLOW. NO S/S SOB NOTED. NO C/O PAIN AT HIS TIME. PATIENT DOES STATE SHE IS NAUSEOUS, OFFERED ANTINAUSEA MEDICATION BUT PATIENT REFUSED. EDUCATED PATIENT ON MEDICATION, CONTINUES TO REFUSE. PATIENT ALSO COMPLAINS OF COLDNESS PER RESIDENTIAL PROPERTY CONSULTANT VITAL PATIENTS TEMP IS 97.5. WILL TURN ON ROOM HEATER AND PLACE WARM BLANKETS ON PATIENT AND REASSESS. IN NO APPARENT DISTRESS. IV ACCESS IN LEFT HAND #22 PATENT AND SALINE LOCKED. INATAL PHYSICAL ASSESSMENT COMPLETED AT THIS TIME. SKIN ASSESSMENT COMPLETED, PHOTOS TAKEN AND PLACED IN CHART. BED IS LOW AND LOCKED, HOB ELEVATED IN SEMI/HIGH FOWLERS, SIDE RAILS UP X3, MARIA ESTHER LIGHT WITHIN REACH. WILL CONTINUE TO MONITOR.
[2020-07-02 20:00] VITALS: BP 151/88
[2020-07-02] MEDS: METRONIDAZOLE 500MG/ NS 100ML 500 MG in PREMIX 1 EA IV SCH (20:47)
[2020-07-02] MEDS: CYCLOBENZAPRINE 10 MG TABLET PO SCH (20:59)
--- NOTE | 2020-07-02 21:00 | NUR ---
ms rn note patient refused Flexeril 10mg states she does not like this medication and does not want it. educated her on risks and benefits, continues to refuse. will continue to monitor.
--- NOTE | 2020-07-02 21:00 | NUR ---
MS RN NOTE PATIENT TEMP IS NOW 97.8. WILL CONTINUE TO MONITOR.
[2020-07-02] MEDS: TRAZODONE 50 MG TABLET PO SCH (22:00)
[2020-07-02] MEDS: diphenhydrAMINE HCL 25 MG CAPSULE PO SCH (22:00)
[2020-07-02] MEDS ORDERED: TEMAZEPAM 15 MG CAPSULE PO PRN (22:00)
--- NOTE | 2020-07-02 23:17 | NUR ---
ms rn note patient refused medications of benadryl 25 mg and trazadone 150mg. states only takes these medications when she is having trouble sleeping. patient is resting/sleeping comfortably at the time when asked. will continue to monitor.
--- NOTE | 2020-07-02 23:47 | NUR ---
MS RN NOTE INFORMED DR. AREVALO THE VTE SCORE IS GREATER THAN 5 AND IF ANY CHEMICAL PROPHYLAXIS WOULD BE ORDER. PER MD, NOT NOW, PATIENT MAY NEED SURGERY. WILL CONTINUE TO MONITOR.
[2020-07-03] MEDS: METRONIDAZOLE 500MG/ NS 100ML 500 MG in PREMIX 1 EA IV SCH ×3 (05:19→21:03)
[2020-07-03 06:06] LABS: BASOPHILS # (AUTO) 0.1 /CMM (0.0-0.2); BASOPHILS % (AUTO) 0.5 % (0.0-2.0); EOSINOPHILS % (AUTO) 0.7 % (0.0-6.0); HEMATOCRIT 45 % (33-45); HEMOGLOBIN 14.5 g/dL (11.5-14.8); LYMPHOCYTES # (AUTO) 1.9 /CMM (0.8-4.8); LYMPHOCYTES % (AUTO) 16.7 % (20.0-44.0); MEAN CORPUSCULAR HGB CONC 32 g/dl (31.0-36.0); MEAN CORPUSCULAR VOLUME 92 fL (82-100); MONOCYTES # (AUTO) 0.8 /CMM (0.1-1.30); NEUTROPHILS # (AUTO) 8.4 /CMM (1.8-8.9); NEUTROPHILS % (AUTO) 75.1 % (43.0-81.0); PLATELET COUNT (AUTO) 201 /CMM (150-450); RED BLOOD CELL COUNT(AUTO) 4.92 MIL/uL (4.0-5.2); WHITE BLOOD COUNT (AUTO) 11.2 K/uL (4.3-11.0)
[2020-07-03 06:14] LABS: CALCIUM, SERUM 8.9 mg/dL (8.5-10.1); CREATININE 0.7 mg/dL (0.6-1.3); MAGNESIUM 1.8 mg/dL (1.8-2.4); PHOSPHORUS 2.8 mg/dL (2.5-4.9); POTASSIUM 3.7 mmol/L (3.5-5.1)
--- NOTE | 2020-07-03 07:24 | NUR ---
MS RN NOTE PER SHIRLENE AMARO PATIENT WATER TO SEE IF SHE TOLERATES IT. INFORMED MD PATIENT TOLERATED WASTER WELL. MD ORDERED CHANGE TO CLEAR LIQUID DIET, ASSESS WHETHER WATER INCREASES PAIN. NOTED AND CARRIED OUT. WILL ENDORSE TO NEXT SHIFT.
--- NOTE | 2020-07-03 07:30 | NUR ---
PEANUT PICKER OPENING NOTES RECEIVED IN BED. A/OX4. ON OXYGEN 3.5L/MIN VIA NASAL CANNULA. NOT IN ANY ACUTE DISTRESS. IV ACCESS IN LEFT HAND #22 INTACT PATENT AND SALINE LOCKED. BED REMAINS LOW AND LOCKED, HOB ELEVATED IN SEMI/HIGH FOWLERS, SIDE RAILS UP X3, MARIA ESTHER LIGHT WITHIN REACH. WILL CONTINUE TO MONITOR.
--- NOTE | 2020-07-03 07:30 | NUR ---
MS RN NOTE DR. SCOTT CHANGED ORDER BACK TO NPO. FOR ABD US, INFORMED ME TO ENDORSE TO DAY SHIFT TO PLACE ON CLEAR LIQUIDS AFTER ABD US. NOTE MADE ON REPORT SHEET. AND ENDORSE TO DAY SHIFT.
[2020-07-03 08:00] VITALS: BP 123/72
--- NOTE | 2020-07-03 08:11 | NUR ---
MS RN CLOSING NOTE PATIENT RESTING IN BED. A/OX4. ON OXYGEN 3.5L/MIN VIA NASAL CANNULA. NO RESP DISTRESS. NO PAIN REPORTED. NO DISTRESS. IV ACCESS MAINTAINED IN LEFT HAND #22 PATENT AND SALINE LOCKED. BED REMAINS LOW AND LOCKED, HOB ELEVATED IN SEMI/HIGH FOWLERS, SIDE RAILS UP X3, MARIA ESTHER LIGHT WITHIN REACH. WILL ENDORSE TO NEXT SHIFT.
[2020-07-03] MEDS ORDERED: METHADONE HCL 5 MG TABLET PO SCH (09:00)
[2020-07-03] MEDS ORDERED: SENNOSIDES 8.6 MG TABLET PO PRN (09:00)
[2020-07-03] MEDS: CYCLOBENZAPRINE 10 MG TABLET PO SCH ×2 (09:12→17:00)
[2020-07-03] MEDS: PANTOPRAZOLE 40 MG TABLET.DR PO SCH (09:12)
--- NOTE | 2020-07-03 09:56 | NUR ---
WOUND CARE CONSULT: PT PRESENTS WITH RT BREASTFOLD REDNESS, PRESENT ON ADMISSION. RECOMMENDATIONS MADE FOR SKIN PROTECTION AND DISCUSSED WITH NURSING STAFF. PT IS INCONTINENT. WILL SEE PRN. EAST IN AGREEMENT WITH PLAN OF CARE. Addendum: 07/03/20 at 0957 by YOLANDA BEAR WNDNU Amended: Links added.
[2020-07-03] MEDS: FLUTICASONE/VILANTEROL 1 EACH BLST.W.DEV IH SCH (11:02)
[2020-07-03] MEDS ORDERED: LEVOFLOXACIN 500 MG /D5W 100ML 500 MG in PREMIX 1 EA IV SCH (15:00)
[2020-07-03 16:00] VITALS: BP 119/73
[2020-07-03] MEDS: DULOXETINE HCL 30 MG CAPSULE.DR PO SCH (17:26)
[2020-07-03] MEDS: CLOTRIMAZOLE 1% 15 GM TUBE TP SCH (17:51)
--- NOTE | 2020-07-03 18:55 | NUR ---
RN MS CLOSING NOTES PATIENT IS IN BED RESTING, ABLE TO BE AWAKENED. A/O X4, ABLE TO MAKE NEEDS KNOWN. BREATHING EVEN AND UNLABORED ON OXYGEN 3.5L/MIN VIA NASAL CANNULA. NOT IN ANY ACUTE DISTRESS. IV LINE ON LEFT HAND #22 INTACT PATENT AND SALINE, IV MEDICATIONS GIVEN ORDERED. SAFETY PRECAUTIONS MAINTAINED: BED LOCKED AND ON LOWEST POSITION, SIDE RAILS UP X2, CALL LIGHT WITHIN REACH. WILL ENDORSE TO CHICKEN RAISER RN FOR SACHI.
--- NOTE | 2020-07-03 19:30 | NUR ---
MS RN OPING NOTE PATIENT IN BED. A/OX4. ON OXYGEN 3.5L/MIN VIA NASAL CANNULA, O2 SAT 97% WILL TITRATE O2. RESPIRATIONS ARE EVEN AND UNLABORED. NO S/S SOB NOTED. NO RESP DISTRESS. NO C/O PAIN AT THIS TIME. IN NO APPARENT DISTRESS. IV ACCESS IN LEFT HAND #22 RUNNING TKO. BED IS LOW AND LOCKED, HOB ELEVATED IN DARREL, SIDE RAILS UP X3, CALL LIGHT WITHIN REACH. WILL CONTINUE TO MONITOR.
[2020-07-03 20:00] VITALS: BP 141/86
--- NOTE | 2020-07-03 20:19 | NUR ---
MS RN NOTE CALLED ON CAM MD DR. AREVALO TO INFORM HIM THAT THIS MORNING DR. SCOTT WANTED PATIENT TO BE ON CLEAR LIQUIDS POST ABD US. ABD US CAME BACK SHOWING GALLSTONES. PER DAY CHARGE NURSE REPORT SURGERY CON SATES NO SURGERY D/T PAIN GETTING BETTER WITH ABX, BUT THERE IS NO SURGERY CONSULT NOTE AT THIS TIME. PATIENT IS ASKING FOR SOMETHING TO DRINK. MD TELEPHONE ORDER CLEAR LIQUIDS TOLERATED. ORDER READ BACK NOTED AND CARRIED OUT.
--- NOTE | 2020-07-03 20:29 | NUR ---
MS RN NOTE PER MUSIC ORCHESTRATOR VITALS TEMP 97.5. REASSESSED TEMP , NOW 98.1. ALSO PLACED PATIENT ON 2L/MIN IA NASAL CANNULA. O2 SAT NOW 94%. WILL CONTINUE TO MONITOR.
[2020-07-03] MEDS: TRAZODONE 50 MG TABLET PO SCH (21:05)
[2020-07-03] MEDS: diphenhydrAMINE HCL 25 MG CAPSULE PO SCH (22:00)
--- NOTE | 2020-07-03 22:13 | NUR ---
ms rn note patient refused benadryl 25mg, states desyrel is working well for her right now. pateint is sleeping confortably, will continue to monitor.
--- NOTE | 2020-07-03 22:52 | NUR ---
MS RN NOTE - TRANSFER OF CARE REPORT GIVEN TO TIERRA GARCIA. PATIENT IS STABLE, MAINTAINEDS A/OX4. OXYGEN 2L/MIN VIA NASAL CANNULA, O RESP DISTRESS. NO C/O PAIN. IV ACCESS MAINTAINED IN RIGHT INDEX FINGER. BED IS LOW AND LOCKED, ALL NEEDS MET.
--- NOTE | 2020-07-03 23:05 | NUR ---
RN NOTES PATIENT RECEIVED RESTING IN BED ON 2L OF O2. NO SIGNS OF RESPIRATORY DISTRESS. NO SIGNS OF ACUTE DISTRESS. R INDEX FINGER #22 TKO. BED IN LOWEST POSITION, BED LOCKED. WILL CONTINUE TO MONITOR THROUGHOUT THE NIGHT.
[2020-07-04] MEDS: METRONIDAZOLE 500MG/ NS 100ML 500 MG in PREMIX 1 EA IV SCH (04:53)
[2020-07-04 06:07] LABS: BASOPHILS % (AUTO) 0.3 % (0.0-2.0); EOSINOPHILS % (AUTO) 2.1 % (0.0-6.0); HEMATOCRIT 38 % (33-45); HEMOGLOBIN 12.4 g/dL (11.5-14.8); LYMPHOCYTES # (AUTO) 1.4 /CMM (0.8-4.8); LYMPHOCYTES % (AUTO) 17.6 % (20.0-44.0); MEAN CORPUSCULAR HGB CONC 32 g/dl (31.0-36.0); MEAN CORPUSCULAR VOLUME 91 fL (82-100); MONOCYTES # (AUTO) 0.5 /CMM (0.1-1.30); MONOCYTES % (AUTO) 6.9 % (2.0-12.0); NEUTROPHILS # (AUTO) 5.8 /CMM (1.8-8.9); NEUTROPHILS % (AUTO) 73.1 % (43.0-81.0); PLATELET COUNT (AUTO) 146 /CMM (150-450); RED BLOOD CELL COUNT(AUTO) 4.23 MIL/uL (4.0-5.2); WHITE BLOOD COUNT (AUTO) 7.9 K/uL (4.3-11.0)
[2020-07-04 06:14] LABS: ALBUMIN 2.4 g/dL (3.4-5.0); BILIRUBIN,TOTAL 0.5 mg/dL (0.2-1.0); CALCIUM, SERUM 7.7 mg/dL (8.5-10.1); CREATININE 0.6 mg/dL (0.6-1.3); POTASSIUM 2.9 mmol/L (3.5-5.1); TOTAL PROTEIN, SERUM 5.5 g/dL (6.4-8.2)
--- NOTE | 2020-07-04 06:45 | NUR ---
RN CLOSING NOTES PATIENT IN BED SLEEPING. ON 2L OF O2 WITH BREATHING EVEN AND UNLABORED, NO SOB NOTED. NO SIGNS OF ACUTE DISTRESS. NO SIGNS OF PAIN OR DISCOMFORT AT THE MOMENT. IV LOCATED ON R INDEX #22 TKO. SAFETY PRECAUTIONS IN PLACE WITH BED IN LOWEST POSITION, CALL LIGHT WITHIN REACH, BREAKS ON, SIDE RAILS UP. ALL NEEDS ATTENDED TO. PATIENT KEPT CLEAN AND DRY THROUGHOUT THE NIGHT. WILL ENDORSE TO ONCOMING SHIFT ABOUT SACHI.
--- NOTE | 2020-07-04 07:20 | NUR ---
ms rn received on bed, awake,alert,oriented x4,not in any form of distress, respirations even and unlabored,no sob noted, lungs are diminish,abdomen soft,positive bowel sounds,denies pain at this itme,all needs attended.
[2020-07-04 08:00] VITALS: BP 156/93
--- NOTE | 2020-07-04 08:00 | NUR ---
ms rn was seen by dr. hannah, was aware of hgb a1c and polst at the chart, will monitor patient.
--- NOTE | 2020-07-04 09:40 | NUR ---
ms freeman breakfast served,advance to solids,due meds given,tolerated well.
[2020-07-04] MEDS: PANTOPRAZOLE 40 MG TABLET.DR PO SCH ×2 (09:54→10:47)
[2020-07-04] MEDS: CYCLOBENZAPRINE 10 MG TABLET PO SCH ×2 (09:54→18:35)
[2020-07-04] MEDS: POTASSIUM CHLORIDE 20 MEQ TAB.PRT.SR PO SCH ×3 (09:55→11:48)
[2020-07-04] MEDS: CLOTRIMAZOLE 1% 15 GM TUBE TP SCH ×2 (09:57→18:35)
[2020-07-04] MEDS: FLUTICASONE/VILANTEROL 1 EACH BLST.W.DEV IH SCH (09:58)
[2020-07-04] MEDS: METRONIDAZOLE 500 MG TABLET PO SCH ×2 (14:06→21:04)
[2020-07-04] MEDS: LEVOFLOXACIN (250MG) 250 MG TABLET PO SCH (15:18)
[2020-07-04 16:00] VITALS: BP 170/105
[2020-07-04] MEDS: DULOXETINE HCL 30 MG CAPSULE.DR PO SCH (18:35)
--- NOTE | 2020-07-04 19:00 | NUR ---
ms rn on bed, no distress noted.
--- NOTE | 2020-07-04 19:24 | NUR ---
RN OPENING NOTES PATIENT RECEIVED RESTING IN BED SLEEPING A/O X 3. ON RA WITH BREATHING EVEN AND UNLABORED, NO SOB NOTED. NO SIGNS OF ACUTE DISTRESS. NO SIGNS OF PAIN OR DISCOMFORT AT THE MOMENT. IV LOCATED ON R INDEX #22 TKO. SAFETY PRECAUTIONS IN PLACE WITH BED IN LOWEST POSITION, CALL LIGHT WITHIN REACH, BREAKS ON, SIDE RAILS UP. ALL NEEDS ATTENDED TO. PATIENT KEPT CLEAN AND DRY THROUGHOUT THE NIGHT. WILL CONTINUE TO MONITOR THROUGHOUT THE NIGHT.
[2020-07-04 20:00] VITALS: BP 176/107
--- NOTE | 2020-07-04 20:15 | NUR ---
RN NOTES PATIENT BP 176/107, PRN CLONIDINE ADMINISTERED. PATIENT SHOWS NO SIGNS OF ACUTE DISTRESS. NO COMPLAINTS OF DIZZINESS OR DISCOMFORT. WILL CONTINUE TO MONITOR.
[2020-07-04] MEDS: diphenhydrAMINE HCL 25 MG CAPSULE PO SCH (21:04)
[2020-07-04] MEDS: TRAZODONE 50 MG TABLET PO SCH (21:04)
[2020-07-05] MEDS: METRONIDAZOLE 500 MG TABLET PO SCH ×2 (05:29→13:00)
[2020-07-05 06:19] LABS: BASOPHILS % (AUTO) 0.5 % (0.0-2.0); EOSINOPHILS % (AUTO) 1.9 % (0.0-6.0); HEMATOCRIT 48 % (33-45); HEMOGLOBIN 15.8 g/dL (11.5-14.8); LYMPHOCYTES # (AUTO) 1.8 /CMM (0.8-4.8); LYMPHOCYTES % (AUTO) 22.3 % (20.0-44.0); MEAN CORPUSCULAR HGB CONC 33 g/dl (31.0-36.0); MEAN CORPUSCULAR VOLUME 90 fL (82-100); MONOCYTES # (AUTO) 0.7 /CMM (0.1-1.30); MONOCYTES % (AUTO) 8.6 % (2.0-12.0); NEUTROPHILS # (AUTO) 5.5 /CMM (1.8-8.9); NEUTROPHILS % (AUTO) 66.7 % (43.0-81.0); PLATELET COUNT (AUTO) 188 /CMM (150-450); RED BLOOD CELL COUNT(AUTO) 5.34 MIL/uL (4.0-5.2); WHITE BLOOD COUNT (AUTO) 8.2 K/uL (4.3-11.0)
--- NOTE | 2020-07-05 06:46 | NUR ---
RN CLOSING NOTES PATIENT RESTING IN BED SLEEPING A/O X 3. ON 2L OF O2 WITH BREATHING EVEN AND UNLABORED, NO SOB NOTED. NO SIGNS OF ACUTE DISTRESS. NO SIGNS OF PAIN OR DISCOMFORT AT THE MOMENT. IV LOCATED ON R INDEX #22 TKO. SAFETY PRECAUTIONS IN PLACE WITH BED IN LOWEST POSITION, CALL LIGHT WITHIN REACH, BREAKS ON, SIDE RAILS UP. ALL NEEDS ATTENDED TO. PATIENT KEPT CLEAN AND DRY THROUGHOUT THE NIGHT. ALL NEEDS ATTENDED TO. PATIENT KEPT CLEAN AND DRY THROUGHOUT THE NIGHT.
[2020-07-05 06:55] LABS: CALCIUM, SERUM 8.9 mg/dL (8.5-10.1); CREATININE 0.6 mg/dL (0.6-1.3); POTASSIUM 3.5 mmol/L (3.5-5.1)
--- NOTE | 2020-07-05 07:19 | NUR ---
m/s floatlight powder mixer: md visit seen and examined by dr. hannah with order to discharge home with Discharge instructions <1)f/u with PCP in 3-5 days, 2)f/u with surgery as needed. order acknowledged. pt verbalized understanding.
[2020-07-05 08:00] VITALS: BP 157/78
[2020-07-05] MEDS: CYCLOBENZAPRINE 10 MG TABLET PO SCH ×2 (08:56→16:36)
[2020-07-05] MEDS: FLUTICASONE/VILANTEROL 1 EACH BLST.W.DEV IH SCH (08:56)
[2020-07-05] MEDS: CLOTRIMAZOLE 1% 15 GM TUBE TP SCH ×2 (08:57→16:37)
--- NOTE | 2020-07-05 10:30 | NUR ---
m/s copy and print associate: notes pt requests for social worker delinquency prevention for placement, pt stating that she was on hospice before and can't go back to her apartment. case management made aware for placement. cn made aware.
--- NOTE | 2020-07-05 10:41 | NUR ---
SW received a call from [facility] as patient wanted to speak to a social work manager. SW met with the patient at bedside. Patient is alert and oriented x4. Patient was found sitting up in bed, was receptive to speaking with this SW, and was calm and cooperative throughout this assessment. Patient informed this SW that patient cannot return to her home. Patient reported that she would rent a room and was told she cannot return because she is sick and in the hospital. Patient informed this SW that she would like placement for this patient. SW asked patient about patient's source of income. Patient reported that she currently receives $1,000 in Social Security income. SW informed patient that this SW would speak with Case Management team to assist in placement. Patient in understanding. Plan: SW to inform Case Management regarding patient's request.
--- NOTE | 2020-07-05 10:46 | NUR ---
SW notified Case Management team to assist in placement for this patient. Case Management team to speak with this patient regarding placement request.
--- NOTE | 2020-07-05 13:25 | NUR ---
m/s licensed occupational therapy assistant: notes anastacia (benjie) arranged pt to go [facility] today at 1730, pt aware. dr. hannah made aware by case management.
--- NOTE | 2020-07-05 14:40 | NUR ---
m/s pie icer machine: notes report given to aba (rn booking supervisor) at [facility] for continuity of care. for shrimp picker at 1730. will continue to monitor.
--- NOTE | 2020-07-05 14:56 | NUR ---
m/s child nutrition manager: notes pt doesn't want staff to call her [facility] to let her know re: d'c to sn[facility].
[2020-07-05] MEDS: LEVOFLOXACIN (250MG) 250 MG TABLET PO SCH (15:00)
--- NOTE | 2020-07-05 15:43 | NUR ---
m/s sales enablement lead: zechariah rodriguez (rn supervisor [employer]) called from [facility] and updated report via phone. eta remains at 1730.
--- NOTE | 2020-07-05 15:45 | NUR ---
m/s icer machine operator: notes discharge instructions given to pt and verbalized understanding. pt request to have her iv remove now. h/l removed with tip intact. instructed to call for assistance. will continue to monitor.
[2020-07-05 16:00] VITALS: BP 153/106
[2020-07-05] MEDS: DULOXETINE HCL 30 MG CAPSULE.DR PO SCH (17:02)
--- NOTE | 2020-07-05 17:57 | NUR ---
m/s ore sampler: notes f/u made to anastacia (benjie) re: [facility], per anastacia [facility] is running late for another 30 minutes. pt made aware.
--- NOTE | 2020-07-05 18:48 | NUR ---
m/s senior research executive: notes [facility] still not here, f/u made to case management. pt getting anxious.
--- NOTE | 2020-07-05 18:58 | NUR ---
m/s principal solutions architect: notes [facility] here and report given to one of the crew. all valuables returned to pt.
--- NOTE | 2020-07-05 19:03 | NUR ---
m/s director of marketing analytics: discharged discharged to [facility] via ambulance in stable condition accompanied by 2 crew.
== END 2020-07-05 19:02 | DRG 445 ==
LOC: ER 13:00 → MED 17:55
PROVIDERS: ADMIT Family Medicine; ATTEND Family Medicine
DX: K80.10 Calculus of gallbladder with chronic cholecystitis without obstruction (principal); E44.1 Mild protein-calorie malnutrition; M79.7 Fibromyalgia; G35 Multiple sclerosis; J44.9 Chronic obstructive pulmonary disease, unspecified; K21.9 Gastro-esophageal reflux disease without esophagitis; E66.9 Obesity, unspecified; Z68.31 Body mass index [BMI] 31.0-31.9, adult; F32.9 Major depressive disorder, single episode, unspecified; F17.210 Nicotine dependence, cigarettes, uncomplicated; Z85.51 Personal history of malignant neoplasm of bladder; Z79.899 Other long term (current) drug therapy; Z85.3 Personal history of malignant neoplasm of breast; Z79.84 Long term (current) use of oral hypoglycemic drugs; Z98.1 Arthrodesis status; R74.01 Elevation of levels of liver transaminase levels; E88.09 Other disorders of plasma-protein metabolism, not elsewhere classified; G89.29 Other chronic pain; K76.0 Fatty (change of) liver, not elsewhere classified; D72.829 Elevated white blood cell count, unspecified; E11.65 Type 2 diabetes mellitus with hyperglycemia; Z90.710 Acquired absence of both cervix and uterus
CPT/HCPCS: 36415; 71045-TC; 76700-TC; 80048-TC; 80053-TC; 80061-TC; 80076-TC; 81000-TC; 83605-TC; 83690-TC; 83735-TC; 84100-TC; 85025-TC; 85730-TC; 87040-TC; 87081-TC; 97112-TC; 97116-TC; 97530-TC; A4216; G0378; J1956; J2405; J7050; Q0163